=== PATIENT | female | born 1985 | race African-American/Black ===

== ENCOUNTER 2018-11-23 08:46 | Inpatient (IN) | payer SELFPAY ==
[2018-11-23] MEDS ORDERED: LIDOCAINE 1% (MPF) 30 ML INJ INJ (10:00)
[2018-11-23] MEDS ORDERED: OXYTOCIN 30 UNITS/LR 500 ML IV ×4 (10:00→21:00)
[2018-11-23] MEDS ORDERED: METHYLERGONOVINE 0.2 MG INJ IM ×2 (10:00→21:00)
[2018-11-23] MEDS ORDERED: MISOPROSTOL 200 MCG TAB PR ×2 (10:00→21:00)
[2018-11-23] MEDS ORDERED: CARBOPROST 250 MCG INJ IM ×2 (10:00→21:00)
[2018-11-23] MEDS: LACTATED RINGER'S 1,000 ML IV ×3 (10:58→19:00)
[2018-11-23 11:00] LABS: ADD MAN DIFF? NO
[2018-11-23] MEDS ORDERED: IBUPROFEN 600 MG TAB PO (11:00)
[2018-11-23] MEDS ORDERED: BUTORPHANOL 2 MG INJ IV (11:00)
[2018-11-23] MEDS ORDERED: MINERAL OIL LIGHT 10 ML VIAL TOP (11:00)
[2018-11-23 11:06] LABS: WHITE BLOOD COUNT 6.9 10^3/ul (4.8-10.8)
[2018-11-23 11:06] LABS: ABNORMAL IP MESSAGE 1; BASOPHILS % 0.1 % (0.0-2.0); EOSINOPHILS % 0.4 % (0.0-7.0); HEMATOCRIT 28.4 % (37.0-47.0); HEMOGLOBIN 8.9 g/dl (12.0-16.0); LYMPHOCYTES # 1.5 10^3/ul (0.8-2.9); LYMPHOCYTES % 21.4 % (15.0-51.0); MEAN CORPUSCULAR HEMOGLOBIN 29.8 pg (29.0-33.0); MEAN CORPUSCULAR HGB CONC 31.3 g/dl (32.0-37.0); MEAN PLATELET VOLUME 11.3 fl (7.4-10.4); MONOCYTE # 0.3 10^3/ul (0.3-0.9); MONOCYTES % 4.5 % (0.0-11.0); NEUTROPHIL # 4.9 10^3/ul (1.6-7.5); NEUTROPHILS % 70.4 % (39.0-77.0); NUCLEATED RED BLOOD CELLS # 0.1 10^3/ul (0.0-0.0); PLATELET COUNT 80 10^3/UL (140-415); RED BLOOD COUNT 2.99 10^6/ul (4.20-5.40); RED CELL DISTRIBUTION WIDTH 14.4 % (11.5-14.5)
[2018-11-23 11:09] LABS: POSITIVE DIFF @See below
[2018-11-23 11:24] LABS: INR 0.89; PROTIME 12.2 Sec (11.9-14.9)
[2018-11-23 11:25] LABS: PARTIAL THROMBOPLASTIN TIME 30.9 Sec (23.0-35.0)
[2018-11-23] MEDS ORDERED: ROPIVACAINE 0.2% 100 ML (12:10)
[2018-11-23] MEDS ORDERED: FENTAnyl 50 MCG/ML VIAL ×2 (12:11)
[2018-11-23] MEDS ORDERED: ROPIVACAINE 0.2% 100ML BAG EPI (13:00)
[2018-11-23] MEDS ORDERED: NALOXONE (0.4 MG/ML) INJ IV (13:00)
[2018-11-23] MEDS ORDERED: DIPHENHYDRAMINE 50 MG INJ IV (13:00)
[2018-11-23] MEDS ORDERED: ONDANSETRON 4 MG INJ IV (13:00)
[2018-11-23] MEDS: OXYTOCIN 30 UNITS/LR 500 ML IV ×2 (13:26→20:38)
[2018-11-23 14:09] LABS: ADD UMIC NO; UR ASCORBIC ACID NEGATIVE (NEGATIVE); UR BILIRUBIN (Dip) NEGATIVE (NEGATIVE); UR BLOOD (Dip) NEGATIVE (NEGATIVE); UR CLARITY CLEAR (CLEAR); UR COLOR YELLOW (YELLOW); UR GLUCOSE (Dip) NEGATIVE (NEGATIVE); UR KETONES (Dip) NEGATIVE (NEGATIVE); UR LEUKOCYTE ESTERASE (Dip) NEGATIVE Leu/ul (NEGATIVE); UR NITRITE (Dip) NEGATIVE (NEGATIVE); UR SPECIFIC GRAVITY (Dip) 1.014 (1.003-1.030); UR TOTAL PROTEIN (Dip) NEGATIVE (NEGATIVE); UR UROBILINOGEN (Dip) 2+ mg/dL (NEGATIVE)
[2018-11-23 14:13] LABS: ALANINE AMINOTRANSFERASE 8 IU/L (13-69); ALBUMIN 2.9 g/dl (3.3-4.9); ALBUMIN/GLOBULIN RATIO 0.76; ALKALINE PHOSPHATASE 211 IU/L (42-121); ANION GAP 5 (5-13); ASPARTATE AMINO TRANSFERASE 30 IU/L (15-46); BILIRUBIN,INDIRECT 0.2 mg/dl (0-1.1); BILIRUBIN,TOTAL 0.2 mg/dl (0.2-1.3); BLOOD UREA NITROGEN 8 mg/dl (7-20); CALCIUM 8.6 mg/dl (8.4-10.2); CARBON DIOXIDE 19 mmol/L (21-31); CHLORIDE 113 mmol/L (97-110); CREATININE 0.52 mg/dl (0.44-1.00); Estimated GFR > 60 mL/min (>60); GLUCOSE 69 mg/dl (70-220); POTASSIUM 4.2 mmol/L (3.5-5.1); SODIUM 137 mmol/L (135-144); TOTAL PROTEIN 6.7 g/dl (6.1-8.1); URIC ACID 7.5 mg/dl (3.1-7.9)
[2018-11-23] MEDS ORDERED: LABETALOL HCL 20MG INJ (14:23)
[2018-11-23] MEDS: LABETALOL HCL 20MG INJ IV ×2 (14:32→18:57)
[2018-11-23 15:19] LABS: RAPID PLASMA REAGIN NONREACTIVE (NR)
[2018-11-23] MEDS: LACTATED RINGER'S 1,000 ML IV* (20:38)
[2018-11-23] MEDS: DIPHENHYDRAMINE 25 MG CAP PO (21:00)
[2018-11-23] MEDS: HYDROCODONE/APAP (5/325) TAB PO (22:22)
[2018-11-23] MEDS: AMOXICILLIN 500 MG CAP PO (22:22)
[2018-11-23] MEDS: CLOBETASOL 0.05% 15 GM CR TOP (22:30)
[2018-11-24] MEDS: IBUPROFEN 600 MG TAB PO ×3 (00:18→11:22)
[2018-11-24] MEDS: HYDROCODONE/APAP (5/325) TAB PO ×3 (03:03→15:01)
[2018-11-24] MEDS: LACTATED RINGER'S 1,000 ML IV* (04:38)
[2018-11-24] MEDS: AMOXICILLIN 500 MG CAP PO ×2 (06:01→13:32)
[2018-11-24] MEDS: CLOBETASOL 0.05% 15 GM CR TOP (08:36)
[2018-11-24 09:29] LABS: ADD MAN DIFF? NO
[2018-11-24 09:33] LABS: ABNORMAL IP MESSAGE 1; BASOPHILS % 0.2 % (0.0-2.0); EOSINOPHILS % 0.2 % (0.0-7.0); HEMOGLOBIN 8.4 g/dl (12.0-16.0); LYMPHOCYTES # 1.9 10^3/ul (0.8-2.9); LYMPHOCYTES % 22.4 % (15.0-51.0); MEAN CORPUSCULAR HEMOGLOBIN 29.8 pg (29.0-33.0); MEAN CORPUSCULAR HGB CONC 31.1 g/dl (32.0-37.0); MEAN CORPUSCULAR VOLUME 95.7 fl (82.0-101.0); MEAN PLATELET VOLUME 10.6 fl (7.4-10.4); MONOCYTE # 0.3 10^3/ul (0.3-0.9); MONOCYTES % 3.2 % (0.0-11.0); NUCLEATED RED BLOOD CELLS # 0.1 10^3/ul (0.0-0.0); NUCLEATED RED BLOOD CELLS% 0.8 /100WBC (0.0-0.0); PLATELET COUNT 61 10^3/UL (140-415); RED BLOOD COUNT 2.82 10^6/ul (4.20-5.40); RED CELL DISTRIBUTION WIDTH 14.1 % (11.5-14.5)
[2018-11-24 09:33] LABS: WHITE BLOOD COUNT 8.3 10^3/ul (4.8-10.8)
[2018-11-24 09:36] LABS: POSITIVE DIFF @See below
[2018-11-24] MEDS: LABETALOL 100 MG TAB PO (11:22)
[2018-11-24] MEDS: MEDROXYPROGESTERONE 150 MG INJ SYG IM (17:13)
== END 2018-11-24 17:25 | disposition home or self-care (01) | DRG 807 ==
LOC: OBT 08:46 → L-D 08:47 → OBT 09:37 → L-D 09:48 → PP1 22:01
PROVIDERS: Obstetrics & Gynecology
PROC: 10E0XZZ Delivery of Products of Conception, External Approach (ICD-10-PCS; principal; 2018-11-23)
PROC: 0HQ9XZZ Repair Perineum Skin, External Approach (ICD-10-PCS; 2018-11-23)
PROC: 3E033VJ Introduction of Other Hormone into Peripheral Vein, Percutaneous Approach (ICD-10-PCS; 2018-11-23)
DX: O70.0 First degree perineal laceration during delivery (principal); Z37.0 Single live birth; Z3A.37 37 weeks gestation of pregnancy
CPT/HCPCS: 62319; 80053; 81003; 84560; 85025; 85610; 85730; 86592; 86850; 86900; 86901; 90686; 99464